=== PATIENT | male | born 1975 | race Caucasian/White ===

== ENCOUNTER → 2017-07-14 | Outpatient (CLI) | payer BC ==
--- NOTE | 2017-07-17 08:20 | Diagnostic Imaging Report ---
#[id number] - USBRECOMLT ULTRASOUND OF THE LEFT BREAST : 07/14/2017 No prior exams were available for comparison. Patient complains of a palpable nodule in the left breast that has been present for several years. Color flow and real-time ultrasound were performed on the entire left breast with scanning in all four quadrants, retroareolar region and the left axilla. -At the 7 o'clock position 5 cm from the nipple with scanning over the palpable abnormality is a well circumscribed round nodule with internal debris measuring 1.1 x 0.9 x 0.9 cm. This is superficial in location and likely represents a sebaceous cyst. IMPRESSION: BENIGN There is no sonographic evidence of malignancy. Follow-up with ACR/ACS guidelines. Flynn Flannery Jr., D.O. 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
== END ==
LOC: US 13:51
PROVIDERS: ATTEND Family Medicine
DX: N63.20 Unspecified lump in the left breast, unspecified quadrant (principal)

== ENCOUNTER → 2017-09-25 | Outpatient (CLI) | payer BC ==
--- NOTE | 2017-09-25 15:39 | Diagnostic Imaging Report ---
EXAM: CT Abdomen and Pelvis WITHOUT contrast INDICATION: \[id number] \[id number] \S\LEFT NEPHROLITHIASIS COMPARISON: None. TECHNIQUE: Abdomen and pelvis were scanned utilizing a multidetector helical scanner from the lung base to the pubic symphysis without administration of IV contrast. Absence of intravenous contrast decreases sensitivity for detection of focal lesions and vascular pathology. Coronal and sagittal reformations were obtained. Renal stone protocol was performed. IV CONTRAST: None ORAL CONTRAST: Water COMPLICATIONS: None RADIATION DOSE: Total DLP: 797.33 mGy*cm Estimated effective dose: (DLP x 0.015 x size factor) mSv CTDIvol has been reviewed. It is below the limits set by the Radiation Protocol Committee (RPC). FINDINGS: LINES and TUBES: None. LOWER THORAX: Unremarkable HEPATOBILIARY: Unenhanced liver is unremarkable. No biliary ductal dilation. GALLBLADDER: No radio-opaque stones or sludge. No wall thickening. SPLEEN: No splenomegaly. PANCREAS: No focal masses or ductal dilatation. ADRENALS: No adrenal nodules KIDNEYS/URETERS: No right hydronephrosis. Mild left hydroureteronephrosis, due to a 6 mm distal left ureteral obstructive calculus. Mild left perinephric and moderate periureteral fat stranding. 9.4 x 8 cm left mid/superior pole cyst. Ill-defined right midpole hypodensity (series 3, image 8), cannot be characterized on this unenhanced study. No renal stone. GI TRACT: No abnormal distention, wall thickening, or evidence of bowel obstruction. Rectosigmoid submucosal fat deposition, which can be seen in chronic inflammatory bowel disease. Appendix is normal. PELVIC ORGANS/BLADDER: Bladder is collapsed, limiting evaluation. LYMPH NODES: No lymphadenopathy. Nonspecific subcentimeter retroperitoneal lymph nodes. For example 7 mm left para-aortic lymph node (series 3, image 73). VESSELS: Unremarkable. PERITONEUM / RETROPERITONEUM: No free air or fluid. BONES: Unremarkable. SOFT TISSUES: Unremarkable. IMPRESSION: 1. 6 mm obstructive distal left ureteral calculus with mild left hydroureteronephrosis. 2. 9.4 cm left renal cyst. This can be followed up with renal ultrasound. Bassam Paul was notified at 3:35 PM, on 09/25/2017. Signed by: Dr. David Arriaga MD on 09/25/2017 3:35 PM
== END ==
LOC: CT 14:32
PROVIDERS: ATTEND Family Medicine
DX: N20.0 Calculus of kidney (principal)
CPT/HCPCS: 74176